=== PATIENT | female | born 1930 | race Caucasian/White ===

== ENCOUNTER 2016-08-30 18:50 | Emergency (ER) | payer MEDICARE, BC ==
--- NOTE | 2016-08-30 19:32 | EDM.PDOC ---
ED HPI GENERAL MEDICAL PROBLEM - General Chief Complaint: [facility] [employer] [employer] Problem Stated Complaint: UNK Time Seen by Provider: 08/30/16 19:14 - History of Present Illness INITIAL COMMENTS - FREE TEXT/NARRATIVE: HISTORY AND PHYSICAL: History of present illness: [id number] female presents with vaginal bleeding she is reported to use 2 pads today this is a new phenomenon she is reported to have had some hysterectomy prior it is unclear whether this was "partial" per family none. She 's had no fever chills nausea vomiting pain dizziness chest pain shortness of breath or other concern Review of systems: As per history of present illness and below otherwise all systems reviewed and negative. Past medical history: As per history of present illness and as reviewed below otherwise noncontributory. Surgical history: As per history of present illness and as reviewed below otherwise noncontributory. Social history: No reported history of drug or alcohol abuse. Family history: As per history of present illness and as reviewed below otherwise noncontributory. Physical exam: HEENT: Atraumatic, normocephalic, pupils reactive, negative for conjunctival pallor or scleral icterus, mucous membranes moist, throat clear, neck supple, nontender, trachea midline. Lungs: Clear to auscultation, breath sounds equal bilaterally, chest nontender. Heart: S1S2, regular, negative for clicks, rubs, or JVD. Abdomen: Soft, nondistended, nontender. Negative for masses or hepatosplenomegaly. Negative for costovertebral tenderness. Pelvis: Stable nontender. Genitourinary: Rectal: Deferred. Extremities: Atraumatic, negative for cords or calf pain. Neurovascular unremarkable. Neuro: Awake, alert, oriented. Cranial nerves II through XII unremarkable. Cerebellum unremarkable. Motor and sensory unremarkable throughout. Exam nonfocal. Diagnostics: CBC CMP PT/INR UA urine culture Therapeutics: To be determined Impression: #1 history of postmenopausal vaginal bleeding Definitive disposition and diagnosis as appropriate pending reevaluation and review of above. - Related Data Allergies Allergy/AdvReac Type Severity Reaction Status Date / Time No Known Allergies Allergy Verified 08/09/14 13:42 Home Meds: Home Meds Acetaminophen 650 mg PO Q4H PRN 07/23/14 [History] Acetaminophen 650 mg PO QID PRN 07/23/14 [History] Carbidopa/Levodopa [Sinemet 25-100 mg] 1 tab PO QID 07/23/14 [History] Cefuroxime Axetil [Cefuroxime] 250 mg PO BID 07/23/14 [History] Cholecalciferol (Vitamin D3) [Vitamin D3] 5,000 unit PO DAILY 07/23/14 [History] Docusate Sodium 100 mg PO BID PRN 07/23/14 [History] Insulin Aspart [Novolog] 8 unit SQ TIDM 07/23/14 [History] Insulin Aspart [Novolog] 12 unit SQ DAILY PRN 07/23/14 [History] Insulin Glarg,Human.Rec.Analog [LantUS Solostar] 16 unit SUBCUT BEDTIME [History] Levothyroxine 25 mcg PO SUTUTHSA@72907/23/14 [History] Levothyroxine [Synthroid] 50 mcg PO MOWEFR@72907/23/14 [History] Lovastatin 20 mg PO BEDTIME 07/23/14 [History] Magnesium Hydroxide [Milk of Magnesia] 30 ml PO DAILY PRN 07/23/14 [History] Multivitamin [Daily Multiple Vitamin] 1 tab PO DAILY 07/23/14 [History] NIFEdipine [Nifedical XL] 30 mg PO DAILY 07/23/14 [History] Ramipril [Altace] 10 mg PO DAILY 07/23/14 [History] Sertraline [Zoloft] 25 mg PO DAILY 07/23/14 [History] Witch Neeru [Tucks] 1 each TP DAILY PRN 07/23/14 [History] Social & Family History - Tobacco Use Smoking Status *Q: Never Smoker - Recreational Drug Use Recreational Drug Use: No ED ROS GENERAL - Review of Systems Review Of Systems: ROS reveals no pertinent complaints other than HPI. ED EXAM, GENERAL - Physical Exam Exam: See Below (See dictation) Course - Vital Signs Last Recorded V/S: Last Vital Signs Temp 36.8 C 08/30/16 19:10 Pulse 86 08/30/16 19:10 Resp 18 08/30/16 19:10 BP 146/63 H 08/30/16 19:10 Pulse Ox 94 L 08/30/16 19:10 - Orders/Labs/Meds Orders: Active Orders 24 hr Category Date Time Status Insert Wiggins Catheter [Insert Urinary Catheter] [OM.PC] Care 08/30/16 19:30 Ordered Q24H Urinary Catheter Assessment [RC] ASDIRECTED Care 08/30/16 19:18 Active CULTURE URINE [RM] Stat Lab 08/30/16 20:00 Received Labs: Laboratory Tests 08/30/16 08/30/16 08/30/16 Range/Units 19:38 19:38 19:38 WBC 10.22 (4.0-11.0) K/uL RBC 4.19 L (4.30-5.90) M/uL Hgb 11.1 L (12.0-16.0) g/dL Hct 35.5 L (36.0-46.0) % MCV 84.7 (80.0-98.0) fL MCH 26.5 L (27.0-32.0) pg MCHC 31.3 (31.0-37.0) g/dL RDW Std Deviation 48.8 (28.0-62.0) fl RDW Coeff of Stephany 16 H (11.0-15.0) % Plt Count 307 (150-400) K/uL MPV 8.80 (7.40-12.00) fL Neut % (Auto) 82.2 H (48.0-80.0) % Lymph % (Auto) 9.9 L (16.0-40.0) % Bowman % (Auto) 6.7 (0.0-15.0) % Eos % (Auto) 0.8 (0.0-7.0) % Baso % (Auto) 0.4 (0.0-1.5) % Neut # 8.4 H (1.4-5.7) K/uL Lymph # 1.0 (0.6-2.4) K/uL Bowman # 0.7 (0.0-0.8) K/uL Eos # 0.1 (0.0-0.7) K/uL Baso # 0.0 (0.0-0.1) K/uL Nucleated RBC % 0.0 /100WBC Nucleated RBCs # 0 K/uL INR 1.01 (0.86-1.11) Sodium 137 (136-146) mmol/L Potassium 4.5 (3.5-5.1) mmol/L Chloride 105 (98-110) mmol/L Carbon Dioxide 21 (21-31) mmol/L BUN 27 H (6.0-23.0) mg/dL Creatinine 1.3 (0.6-1.5) mg/dL Est Cr Clr Drug Dosing 25.83 mL/min Estimated GFR (MDRD) 38.7 ml/min Glucose 344 H (60-110) mg/dL Calcium 9.2 (8.8-10.8) mg/dL Total Bilirubin 0.2 (0.1-1.5) mg/dL AST 23 (5-40) IU/L ALT 20 (8-54) IU/L Alkaline Phosphatase 71 (40-150) Total Protein 7.2 (6.0-8.0) g/dL Albumin 3.7 (3.4-4.8) g/dL Globulin 3.5 (2.0-3.5) g/dL Albumin/Globulin Ratio 1.1 L (1.3-2.8) Urine Color Urine Appearance Urine pH (5.0-8.0) Ur Specific Armstrong (1.001-1.035) Urine Protein (NEGATIVE) mg/dL Urine Glucose (UA) (NEGATIVE) mg/dL Urine Ketones (NEGATIVE) mg/dL Urine Occult Blood (NEGATIVE) Urine Nitrite (NEGATIVE) Urine Bilirubin (NEGATIVE) Urine Urobilinogen (<2.0) EU/dL Ur Leukocyte Esterase (NEGATIVE) Urine RBC (0-2/HPF) Urine WBC (0-5/HPF) Ur Epithelial Cells (NONE-FEW) Urine Bacteria (NEGATIVE) 08/30/16 Range/Units 20:00 WBC (4.0-11.0) K/uL RBC (4.30-5.90) M/uL Hgb (12.0-16.0) g/dL Hct (36.0-46.0) % MCV (80.0-98.0) fL MCH (27.0-32.0) pg MCHC (31.0-37.0) g/dL RDW Std Deviation (28.0-62.0) fl RDW Coeff of Stephany (11.0-15.0) % Plt Count (150-400) K/uL MPV (7.40-12.00) fL Neut % (Auto) (48.0-80.0) % Lymph % (Auto) (16.0-40.0) % Bowman % (Auto) (0.0-15.0) % Eos % (Auto) (0.0-7.0) % Baso % (Auto) (0.0-1.5) % Neut # (1.4-5.7) K/uL Lymph # (0.6-2.4) K/uL Bowman # (0.0-0.8) K/uL Eos # (0.0-0.7) K/uL Baso # (0.0-0.1) K/uL Nucleated RBC % /100WBC Nucleated RBCs # K/uL INR (0.86-1.11) Sodium (136-146) mmol/L Potassium (3.5-5.1) mmol/L Chloride (98-110) mmol/L Carbon Dioxide (21-31) mmol/L BUN (6.0-23.0) mg/dL Creatinine (0.6-1.5) mg/dL Est Cr Clr Drug Dosing mL/min Estimated GFR (MDRD) ml/min Glucose (60-110) mg/dL Calcium (8.8-10.8) mg/dL Total Bilirubin (0.1-1.5) mg/dL AST (5-40) IU/L ALT (8-54) IU/L Alkaline Phosphatase (40-150) Total Protein (6.0-8.0) g/dL Albumin (3.4-4.8) g/dL Globulin (2.0-3.5) g/dL Albumin/Globulin Ratio (1.3-2.8) Urine Color YELLOW Urine Appearance CLOUDY Urine pH 5.5 (5.0-8.0) Ur Specific Armstrong >= 1.030 (1.001-1.035) Urine Protein 100 (NEGATIVE) mg/dL Urine Glucose (UA) 100 H (NEGATIVE) mg/dL Urine Ketones NEGATIVE (NEGATIVE) mg/dL Urine Occult Blood MODERATE (NEGATIVE) Urine Nitrite POSITIVE H (NEGATIVE) Urine Bilirubin NEGATIVE (NEGATIVE) Urine Urobilinogen 0.2 (<2.0) EU/dL Ur Leukocyte Esterase MODERATE (NEGATIVE) Urine RBC 2-4 (0-2/HPF) Urine WBC 75-100 (0-5/HPF) Ur Epithelial Cells RARE (NONE-FEW) Urine Bacteria 1+ H (NEGATIVE) Departure - Departure Time of Disposition: 20:38 Disposition: Home, Self-Care 01 Condition: good Clinical Impression: UTI (urinary tract infection) Forms: ED Department Discharge Additional Instructions: The following information is given to patients seen in the emergency department who are being discharged to home. This information is to outline your options for follow-up care. We provide all patients seen in our emergency department with a follow-up referral. The need for follow-up, as well as the timing and circumstances, are variable depending upon the specifics of your emergency department visit. If you don't have a primary care physician on staff, we will provide you with a referral. We always advise you to contact your personal physician following an emergency department visit to inform them of the circumstance of the visit and for follow-up with them and/or the need for any referrals to a consulting specialist. The emergency department will also refer you to a specialist when appropriate. This referral assures that you have the opportunity for followup care with a specialist. All of these measure are taken in an effort to provide you with optimal care, which includes your followup. Under all circumstances we always encourage you to contact your private physician who remains a resource for coordinating your care. When calling for followup care, please make the office aware that this follow-up is from your recent emergency room visit. If for any reason you are refused follow-up, please contact the [facility] emergency department at and asked to speak to the emergency department charge nurse. Followup OB gynecology case was discussed with covering [employer] he agrees with scheduled followup please call to schedule as discussed Cipro as prescribed return as needed as discussed - My Orders Last 24 Hours: My Active Orders 08/30/16 19:18 Urinary Catheter Assessment [RC] ASDIRECTED 08/30/16 19:30 Insert Wiggins Catheter [Insert Urinary Catheter] [OM.PC] Q24H 08/30/16 20:00 CULTURE URINE [RM] Stat - Assessment/Plan Last 24 Hours: My Active Orders 08/30/16 19:18 Urinary Catheter Assessment [RC] ASDIRECTED 08/30/16 19:30 Insert Wiggins Catheter [Insert Urinary Catheter] [OM.PC] Q24H 08/30/16 20:00 CULTURE URINE [RM] Stat
[2016-08-30 20:54] VITALS: BP 170/70
== END 2016-08-30 21:09 | disposition home or self-care (01) ==
LOC: MW.ED 18:50
DX: N39.0 Urinary tract infection, site not specified (principal); Z79.899 Other long term (current) drug therapy
CPT/HCPCS: 36415; 80053; 81001; 85025; 85610; 87086; 87088; 87186; 99283; 99284

== ENCOUNTER → 2016-09-03 | Outpatient (CLI) | payer MEDICARE, BC | LOC: MW.CHNEURO 08:00 | PROVIDERS: ATTEND Psychiatry & Neurology Neuromuscular Medicine | DX: F03.90 Unspecified dementia, unspecified severity, without behavioral disturbance, psychotic disturbance, mood disturbance, and anxiety (principal); G25.2 Other specified forms of tremor | CPT/HCPCS: 99214 ==

== ENCOUNTER → 2016-09-07 | Outpatient (CLI) | payer MEDICARE, BC ==
--- NOTE | 2016-09-07 16:45 | CR ---
EXAMINATION: Single contrast esophagram. HISTORY: Obstruction COMPARISON: 12/19/2012 TECHNIQUE: A semiupright single contrast barium esophagram was performed. FINDINGS: There is a moderate hiatal hernia noted. There is also a moderate Schatzki's ring proximal to the hiatal hernia likely resulting in significant luminal narrowing. No gastroesophageal reflux was noted. Esophageal motility is within normal limits. Mild tertiary waves are noted. IMPRESSION: 1. Moderate hiatal hernia with a prominent Schatzki's ring. 2. Mild presbyesophagus.
== END | disposition home or self-care (01) ==
LOC: MW.DI 09:14
PROVIDERS: ATTEND Family Medicine
DX: K22.2 Esophageal obstruction (principal); K44.9 Diaphragmatic hernia without obstruction or gangrene; K22.8 Other specified diseases of esophagus
CPT/HCPCS: 74220; 74220-26